=== PATIENT | male | born 1990 | race Caucasian/White ===

== ENCOUNTER 2018-01-19 01:22 | Emergency (ER) | payer SELFPAY ==
[2018-01-19 01:24] VITALS: BP 143/85
[2018-01-19] MEDS ORDERED: NICOTINE 21 MG/24 HR PATCH TD ONE (01:35)
[2018-01-19 02:30] LABS: PLATELET COUNT, AUTOMATED 254 K/uL (150-450)
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
[2018-01-20] MEDS ORDERED: MULT-7 PO (13:18)
== END 2018-01-19 04:33 ==
LOC: ER 02:14
DX: R45.851 Suicidal ideations (principal)
CPT/HCPCS: 36415; 80305; 80320; 80329; 81001; 82040; 82247; 82310; 82374; 82435; 82565; 82947; 83735; 84075; 84132; 84155; 84295; 84443; 84450; 84460; 84520; 85025; 87088; 99284

== ENCOUNTER 2018-01-19 04:23 | Inpatient (IN) | payer SELFPAY ==
[~2018-01-19] VITALS: Ht 180.3 cm; Wt 67.1 kg
[2018-01-19] MEDS ORDERED: DIAZEPAM 10 MG TAB PO PRN (04:40)
[2018-01-19] MEDS ORDERED: NICOTINE CARTRIDGE 1 EA PO PRN (04:40)
[2018-01-19] MEDS ORDERED: MAG HYD/AL HYD/SIMETH 30ML UDC PO PRN (04:40)
[2018-01-19 04:50] VITALS: BP 148/98
[2018-01-19 08:50] VITALS: BP 128/81
[2018-01-19] MEDS: MULTIVITAMINS TAB PO SCH (09:00)
[2018-01-19 13:15] VITALS: BP 133/84
[2018-01-19] MEDS: NICOTINE INH SYSTEM 10 MG/INH INH PRN (17:29)
[2018-01-19 17:34] VITALS: BP 144/88
[2018-01-20 06:00] VITALS: BP 130/92
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
[2018-01-20] MEDS: MULTIVITAMINS TAB PO SCH (08:21)
[2018-01-20 09:50] VITALS: BP 139/83
[2018-01-20] MEDS: NICOTINE INH SYSTEM 10 MG/INH INH PRN (11:17)
[2018-01-20] MEDS ORDERED: MULT-7 PO (13:18)
[2018-01-20 14:06] VITALS: BP 140/92
--- NOTE | 2018-01-21 12:16 | SCHAAF DISCHARGE ---
ATTENDING PHYSICIAN Memo Chauhan MD DATE OF ADMISSION January 19, 2018 DATE OF DISCHARGE January 20, 2018 The patient was seen at approximately 1100 hours on January 20, 2018 for note concerning this dictation. FINAL DIAGNOSES 1. Alcohol intoxication. 2. Alcohol use disorder, moderate. 3. Substance induced mood disorder, specifically alcohol. REASON FOR ADMISSION This is a 27-year-old male who was emergency detained after contacting his mother in a state of alcohol intoxication and voicing suicidal ideations. The patient was overall cooperative at admission process. Please see History and Physical and ER notes. The patient was somewhat resistant to opening up about care in the Unit. No alcohol withdrawal as clinically relevant could be noted while patient was on the Unit. It was thought that patient not be held detained any longer but instead encouraged to abstain from alcohol and seek outpatient care. The patient was resistant overall to being on the Unit and making any real progress on the Unit. However, it did appear that patient was not overtly depressed and did not have any actual suicidal ideations outside of substance intoxication. The patient is looking forward to going back to work as well as reuniting with his significant other, who is about to be released from incarceration. The patient did allow us to contact mother as well as uncle. Both were contacted. They had no reservations about his discharge and meeting was held between mother and patient via speaker phone as well. The patient was discharged into the care of his grandfather with plans to travel to [place] to engage in employment there. The patient is exhibiting no parasuicidal behaviors on the Unit. No clinically relevant alcohol withdrawal and no parasuicidal behaviors. PHYSICAL EXAMINATION Please see emergency room note. Notable for a 27-year-old male intoxicated at time of admission with a blood alcohol level of 261. The patient is also positive for amphetamines. Lately it is noted that amphetamine screen has been erroneous and patient denying use. Urinalysis showed trace leukocyte esterase. Culture and sensitivity showed likely contaminated specimen. Patient denying any symptoms. TSH initially elevated secondary to alcohol intoxication. This was repeated and was normal. AST elevated at 43 and CBC was unremarkable. MENTAL STATUS EXAMINATION GENERAL APPEARANCE, BEHAVIOR AND ATTITUDE: This is cooperative but resistant to treatment 27-year-old male who adamantly is denying suicidal ideations. No psychomotor agitation, retardation. No bizarre mannerisms or tics. No periods of tearfulness. Patient is making good eye contact. SPEECH: Within normal limits. Regular rate, rhythm, volume and tone. MOOD: Described as improved. AFFECT: Full and mood-congruent at times. THOUGHT PROCESSES: Logical and goal-directed, no loose associations or flight of ideas. THOUGHT CONTENT: Free of auditory or visual hallucinations, ideas of reference , thought broadcastings, delusions, obsessions or compulsions. The patient is adamantly denying suicidal or homicidal ideation. SENSORIUM: Clear. COGNITION: Alert and oriented to person, place, time and situation. MEMORY: Immediate, recent and remote was estimated intact. INTELLIGENCE: Average, based on interview. INSIGHT AND JUDGMENT: Considered grossly intact and appropriate for outpatient care in the absence of alcohol use or other illicit substances. RESULTS OF TESTING Imaging: None. Laboratory data: See above. CONSULTATIONS None. TREATMENT Patient received medications, participated in individual and group therapy. HOSPITAL COURSE The patient remaining somewhat irritated and frustrated on the Unit. However, overall, continued to be cooperative with treatment. Patient agreeing to talk to family members including grandfather and mother to explore reasons associated for this admission. Both agree that the patient consumes too much alcohol. Patient in some denial of this. The patient's father was known to suffer from alcoholism. Treatment was focussed that hopefully patient would gain an understanding of substance induced mood disorder and likely alcohol use disorder. Treatment also focussed on patient willingly going to outpatient followup for other underlying stressors in [place] when he arrives there. It was thought to continue patient on detainment would be less than productive at this time and patient was discharged to home. CONDITION OF PATIENT ON DISCHARGE Stable. Considered a minimal risk to himself or others in the absence of alcohol or illicit substance use. DISPOSITION The patient was discharged to home in the care of his grandfather. He will followup with outpatient care in [place]. Discharge medications included multivitamin daily. The patient is to abstain from all alcohol and illicit substance. The patient is encouraged to abstain from nicotine as well and could use [id number] nicotine replacement. Crisis line was given should symptoms return. The patient was encouraged to follow up with AA, obtain a sponsor and, again, see outpatient therapist in [place] for additional underlying social stressors. Crisis line was given should symptoms return. The risks, benefits and alternatives of the above discharge plan were discussed. Informed consent was given to proceed with the above discharge plan by this patient, patient's grandfather and patient's mother present via phone at time of discharge. LEANDRO
== END 2018-01-20 16:01 | disposition home or self-care (01) | DRG 897 ==
LOC: BHS 04:23
PROVIDERS: ADMIT Nurse Practitioner Psychiatric/Mental Health; ATTEND Nurse Practitioner Psychiatric/Mental Health
DX: F10.920 Alcohol use, unspecified with intoxication, uncomplicated (principal); R45.851 Suicidal ideations; F10.94 Alcohol use, unspecified with alcohol-induced mood disorder; F17.210 Nicotine dependence, cigarettes, uncomplicated; Y90.8 Blood alcohol level of 240 mg/100 ml or more; Z81.1 Family history of alcohol abuse and dependence; Z56.0 Unemployment, unspecified
CPT/HCPCS: 36415; 84439; 84443; 84481